=== PATIENT | female | born 1995 | race American Indian/Alaskan Native ===

== ENCOUNTER 2016-10-10 11:06 | Emergency (ER) | payer MEDICAID ==
[2016-10-10] MEDS: ZOFRAN ODT PO ONE ×2 (13:37→14:07)
[2016-10-10] MEDS: TYLENOL PO ONE ×2 (13:37→14:06)
[2016-10-10 13:59] LABS: Basophils % (Auto) 0.3 % (0.0-1.8); Eosinophils % (Auto) 0.3 % (0.0-4.3); Hematocrit 33.3 % (30.3-42.9); Hemoglobin 11.3 gm/dl (10.1-14.3); Mean Corpuscular HGB Conc 34 % (30-34); Mean Corpuscular Hemoglobin 26 pg (28-32); Mean Corpuscular Volume 77 fl (79-97); Platelet Count 208 K/mm3 (140-440); Red Blood Count 4.31 M/mm3 (3.65-5.03); Red Cell Distribution Width 13.6 % (13.2-15.2); White Blood Count 7.2 K/mm3 (4.5-11.0)
[2016-10-10 14:20] LABS: Anion Gap 15 mmol/L; Blood Urea Nitrogen 5 mg/dL (7-17); Calcium 8.6 mg/dL (8.4-10.2); Carbon Dioxide 25 mmol/L (22-30); Chloride 101.5 mmol/L (98-107); Glucose 77 mg/dL (65-100); Potassium 4.1 mmol/L (3.6-5.0); Sodium 137 mmol/L (137-145)
--- NOTE | 2016-10-10 14:24 | Emergency Department Report ---
ED Headache HPI - General Chief Complaint: Headache Stated Complaint: HEADACHE X 1 DAY/EMESIS BLOOD/37 WKS PREG Time Seen by Provider: 10/10/16 13:11 Source: patient Exam Limitations: no limitations - History of Present Illness Initial Comments: 20-year-old female currently 37 weeks in 3 days presents to the hospital multiple complaints. Complaint 1: Headache Patient complains of bitemporal headache that has been constant for the past 2 days. Patient denies any aggravating or alleviating factors. Take over-the- counter Tylenol without improvement. Pt denies blurred vision, focal weakness, or focal numbness. Complained 2: Vomiting blood Issues states she has had intermittent nausea and vomiting throughout her slightly increased last to 3 weeks. Yesterday she vomited up all her food and then subsequently vomited up blood streaked sputum. No further vomiting episodes noted. Patient denies fever, diarrhea, melena, hematochezia, or abdominal pain Complaint 3: Decreased movement Patient states she thinks the baby is moving less than usual. No complaints of vaginal discharge or abdominal pain/cramps. 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 Allergies/Adverse Reactions: Allergies No Known Allergies Allergy (Unverified 03/10/16 00:07) Home Medications: Ambulatory Orders No Known Home Medications [No Reported Home Medications] 03/10/16 ED Review of Systems ROS: Stated complaint: HEADACHE X 1 DAY/EMESIS BLOOD/37 WKS PREG Other details as noted in HPI Comment: All other systems reviewed and negative Other: Constitutional: No fevers chills Eyes: No eye pain visual changes ENT: No ear pain or throat pain Neck: Denies pain Respiratory: Denies cough wheezing shortness of breath Cardiovascular: Denies chest pain, palpitations, syncope GI: Denies abdominal pain : Denies dysuria Musculoskeletal: Denies back pain Skin: Denies rash, lesions, erythema Neurologic: as per hpi Psychiatric: Denies suicidal ideation, hallucinations ED Past Medical Hx - Past Medical History Previous Medical History?: No - Surgical History Past Surgical History?: Yes Additional Surgical History: . D&C, - Social History Smoking Status: Never Smoker Substance Use Type: None - Medications Home Medications: Home Medications Medication Instructions Recorded Confirmed Last Taken Type No Known Home Medications [No 03/10/16 03/10/16 Unknown History Reported Home Medications] ED Physical Exam - General Limitations: No Limitations - Other Other exam information: General: No limitations, patient is alert in no acute distress Head exam: Atraumatic, normocephalic Eyes exam: Normal appearance, nonicteric sclera ENT: Moist mucous membrane, normal oropharynx, no sinus tenderness Neck exam: Normal inspection, full range of motion, no meningismus nontender Respiratory exam: Clear to auscultation bilateral, no wheezes, rales, crackles Cardiovascular: Normal rate and rhythm, normal heart sounds Abdomen: Soft, nondistended, and nontender, with normal bowel sounds, no rebound, or guarding. abdomen. Positive heart tones (see nurse' s note) Extremity: Full range of motion normal inspection no deformity Back: Normal Inspection, full range of motion, no tenderness Neurologic: Alert, oriented x3, cranial nerves intact, no motor or sensory deficit Psychiatric: normal affect, normal mood ED Course Vital Signs 10/10/16 10/10/16 11:15 13:12 Temperature 98.2 F Pulse Rate 87 Respiratory 16 16 Rate Blood Pressure 112/77 O2 Sat by Pulse 100 Oximetry - Reevaluation(s) Reevaluation #1: 10/10/16 14:32 Patient is tolerating by mouth intake in the ED. She refused offer for Tylenol , Zofran, IV fluids. Patient admitted is well-appearing and does not appear to be in acute distress. She was also refused a lunch back here and states she prefers to chicken wings across the street. - Consultations Consultation #1: 10/10/16 14:20 Case was discussed with electrical test engineer bacon skinner for [facility]. She recommends patient follow-up in the office on Tuesday as schedule ED Medical Decision Making - Lab Data Result diagrams: 10/10/16 13:29 10/10/16 13:29 Lab Results 10/10/16 10/10/16 Range/Units 13:29 13:29 WBC 7.2 (4.5-11.0) K/mm3 RBC 4.31 (3.65-5.03) M/mm3 Hgb 11.3 (10.1-14.3) gm/dl Hct 33.3 (30.3-42.9) % MCV 77 L (79-97) fl MCH 26 L (28-32) pg MCHC 34 (30-34) % RDW 13.6 (13.2-15.2) % Plt Count 208 (140-440) K/mm3 Lymph % (Auto) 21.0 (13.4-35.0) % [place] % (Auto) 13.2 H (0.0-7.3) % Eos % (Auto) 0.3 (0.0-4.3) % Baso % (Auto) 0.3 (0.0-1.8) % Lymph # 1.5 (1.2-5.4) K/mm3 [place] # 1.0 H (0.0-0.8) K/mm3 Eos # 0.0 (0.0-0.4) K/mm3 Baso # 0.0 (0.0-0.1) K/mm3 Seg Neutrophils % 65.2 (40.0-70.0) % Seg Neutrophils # 4.7 (1.8-7.7) K/mm3 Sodium 137 (137-145) mmol/L Potassium 4.1 (3.6-5.0) mmol/L Chloride 101.5 (98-107) mmol/L Carbon Dioxide 25 (22-30) mmol/L Anion Gap 15 mmol/L BUN 5 L (7-17) mg/dL Creatinine 0.4 L (0.7-1.2) mg/dL Estimated GFR > 60 ml/min BUN/Creatinine Ratio 12.50 % Glucose 77 (65-100) mg/dL Calcium 8.6 (8.4-10.2) mg/dL - Medical Decision Making Patient refuses all ER interventions and is not in any acute distress in the ED. CBC BMP unremarkable. Patient will be discharged home to follow-up with [facility]. No signs of preeclampsia since patient has normal vital signs. Neck is supple without signs of meningismus. Headache is mild at this time without associated symptoms. Vomiting blood last related to gastritis/GERD lately sousa tear. No signs of anemia or active bleeding. - Differential Diagnosis preeclampsia, intracranial hemorrhage, sinusitis, headache sinusitis, dehyd Critical Care Time: No Critical care attestation.: If time is entered above; I have spent that time in minutes in the direct care of this critically ill patient, excluding procedure time. ED Disposition Clinical Impression: , Headache, GERD (gastroesophageal reflux disease) Disposition: DISCHARGED TO HOME OR SELFCARE Is pt being admited?: No Does the pt Need Aspirin: No Instructions: (ED), Acute Headache (ED), Gastroesophageal Reflux Disease (ED) Additional Instructions: You may continue Tylenol and Zofran as needed. Return if symptoms worsen. Follow up with your doctor as scheduled Referrals: your, [facility] [Other] - 2-3 Days Time of Disposition: 14:39
[2016-10-10 15:47] VITALS: BP 115/71
== END 2016-10-10 14:50 | disposition home or self-care (01) ==
LOC: ED 11:06
DX: O99.613 Diseases of the digestive system complicating pregnancy, third trimester (principal); K21.9 Gastro-esophageal reflux disease without esophagitis; R51 Headache; Z3A.37 37 weeks gestation of pregnancy
CPT/HCPCS: 36415; 80048; 85025; 99283; Q0162

== ENCOUNTER 2016-10-22 23:03 | Outpatient (CLI) | payer MEDICAID ==
[2016-10-22 23:31] VITALS: BP 123/80
[2016-10-23] MEDS ORDERED: VISTARIL PO ONE (02:06)
== END 2016-10-23 02:31 | disposition home or self-care (01) ==
LOC: TRG 23:03 → LD 23:21 → TRG 10-23 02:31
PROVIDERS: ATTEND Obstetrics & Gynecology
DX: O47.1 False labor at or after 37 completed weeks of gestation (principal); Z3A.39 39 weeks gestation of pregnancy
CPT/HCPCS: 59025; Q0177

== ENCOUNTER 2016-10-23 07:40 | Inpatient (IN) | payer MEDICAID ==
[2016-10-23] MEDS ORDERED: LACTATED RINGERS 1,000 ML ONE (08:31)
[2016-10-23] MEDS ORDERED: SUBLIMAZE IV ONE (09:00)
[2016-10-23] MEDS ORDERED: LACTATED RINGERS 1,000 ML IV SCH ×2 (09:00→10:00)
[2016-10-23] MEDS ORDERED: MINERAL OIL PO PRN (09:05)
[2016-10-23] MEDS ORDERED: ZOFRAN IV PRN ×2 (09:05→10:41)
[2016-10-23] MEDS ORDERED: SUBLIMAZE IV PRN (09:05)
[2016-10-23] MEDS ORDERED: STADOL IV PRN (09:05)
[2016-10-23] MEDS ORDERED: XYLOCAINE 2% INFILTRATI ONE (09:05)
[2016-10-23] MEDS ORDERED: BRETHINE IVP PRN (09:05)
[2016-10-23] MEDS ORDERED: ePHEDrine SULFATE IV PRN (09:05)
[2016-10-23] MEDS ORDERED: BRETHINE SUB-Q PRN (09:05)
--- NOTE | 2016-10-23 09:23 | History and Physical Report ---
History of Present Illness Date of examination: 10/23/16 Date of admission: 10/23/16 08:06 Chief complaint: Painful uterine contractions with advanced dilitation. Prior c/s for breech delivery. Desires . History of present illness: 20yo G [id number] at 39.2. care with [facility] since 7.4 weeks gestation. [place] complicated by prior c/s for breech presentation, desires TOLAC/ with this delivery. Pt had a diagnosis of MRSA on buttock abcess that was treated with Clindamycin in May. HGSIL on colpo on 06/21/17. 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, chlamydia Family/Genetic History: none Social history: denies: smoking, alcohol abuse, prescription drug abuse, IV drug use - Obstetrical History Expected Date of Delivery: 10/28/16 Actual Gestation: 39 Week(s) 2 Day(s) : 3 Para: 1 Hx # Term Pregnancies: 1 Number of Pregnancies: 0 Spontaneous Abortions: 1 Induced : 0 Number of Living Children: 1 Medications and Allergies Allergies Allergy/AdvReac Type Severity Reaction Status Date / Time No Known Allergies Allergy Unverified 03/10/16 00:07 Home Medications Medication Instructions Recorded Confirmed Last Taken Type Bnu732/FA/Omega3/Dha/Fish Oil 1 each PO QDAY 10/23/16 10/23/16 10/22/16 History [ Gummies] 1 Active Meds: Active Medications Lactated Ringer's (Lactated Ringers) 1,000 mls @ 125 mls/hr IV DIRECT KAYLA Last Admin: 10/23/16 08:40 Dose: 125 mls/hr Review of Systems All systems: negative - Vital Signs Vital signs: Vital Signs Temp Resp 94.4 F L 20 10/23/16 08:58 10/23/16 08:58 Temp Pulse Resp BP Pulse Ox 94.4 F L 20 10/23/16 08:58 10/23/16 08:58 - Physical Exam Cardiovascular: Regular rate Lungs: Positive: Normal air movement Vagina: Positive: normal moisture Extremities: Positive: normal Deep Tendon Reflex Grade: Normal +2 - Obstetrical FHR: category 1 FHR comments: 145 with early decels Uterine Contraction Monitor Mode: External Cervical Dilatation: 9 (AROM moderate amount of clear fluid ) Cervical Effacement Percentage: 90 station: 0 Uterine Contraction Frequency (min): q2-3 min Uterine Contraction Pattern: Regular Uterine Tone Measurement Phase: Resting Uterine Contraction Intensity: Strong/Firm Results All other labs normal. Assessment and Plan A: IUP 39.2 weeks active labor TOLAC/ Category 1 FHT GBS negative AROM 0915 moderate amount of clear fluid SVE 9/90/0 P: Admit for TOLAC/- consent signed Continuous monitoring Consulted with Dr. Debra Hicks who agrees with plan of care.
[2016-10-23 09:43] LABS: Hematocrit 36.7 % (30.3-42.9); Hemoglobin 12.5 gm/dl (10.1-14.3); Mean Corpuscular HGB Conc 34 % (30-34); Mean Corpuscular Hemoglobin 26 pg (28-32); Mean Corpuscular Volume 76 fl (79-97); Platelet Count 220 K/mm3 (140-440); Red Blood Count 4.81 M/mm3 (3.65-5.03); Red Cell Distribution Width 13.8 % (13.2-15.2); White Blood Count 14.1 K/mm3 (4.5-11.0)
[2016-10-23] MEDS ORDERED: PITOCin/NS 20 UNIT/1000ML DRIP 20 UNITS/1,000 ML BAG IV SCH (10:00)
--- NOTE | 2016-10-23 10:40 | Procedure Note ---
OB Delivery Note - Delivery Date of Delivery: 10/23/16 Surgeon: MARSHALL ANGULO Estimated blood loss: other (250cc) - Vaginal Delivery position: OA Intrapartum events: none Delivery induction: none Delivery augmentation: rupture of membranes Delivery monitor: external FHT, external uterine Route of delivery: Delivery placenta: spontaneous Delivery laceration: 1st degree, other (bilateral labial) Delivery repair: chromic Anesthesia: local Delivery comments: Baby akin Arnold was delivered on 10/23/16 at 0943. Infant was placed directly on mom's chest and abdomen. Placenta was delivered selina side presenting at 0945. Cord was clamped and cut by father of baby. Bilateral labial lacerations were repaired with 3.0 vicryl on SH 1 with Debra Hicks MD. Baby weighed 7lb 10oz . Apgars 8/9. Mom and baby doing well. Father of baby doing skin to skin. - Infant A at 1 minute: 8 at 5 minutes: 9 Gender: Female
[2016-10-23] MEDS ORDERED: PHENERGAN PR PRN (10:41)
[2016-10-23] MEDS ORDERED: MILK OF MAGNESIA PO PRN (10:41)
[2016-10-23] MEDS ORDERED: DERMOPLAST TP PRN (10:41)
[2016-10-23] MEDS ORDERED: DULCOLAX PR PRN (10:41)
[2016-10-23] MEDS ORDERED: TUCKS PAD TP PRN (10:41)
[2016-10-23] MEDS ORDERED: LANSINOH TP PRN (10:41)
[2016-10-23] MEDS ORDERED: TYLENOL PO PRN (10:41)
[2016-10-23] MEDS ORDERED: PHENERGAN PO PRN (10:41)
[2016-10-23] MEDS ORDERED: BENADRYL PO PRN (10:41)
[2016-10-23] MEDS ORDERED: SODIUM CHLORIDE FLUSH SYRINGE 10 ML IV NR (11:00)
[2016-10-23 12:11] LABS: Anisocytosis 1+; Basophils % (Manual) 0 % (0.0-1.8); Blastocytes % (Manual) 0 %; Eosinophils % (Manual) 0 % (0.0-4.3); Platelet Estimate Consistent w Auto
[2016-10-23 12:12] LABS: Diff Status Complete
[2016-10-23] MEDS: MOTRIN PO SCH ×2 (13:08→21:48)
[2016-10-23] MEDS: NORCO 5/325 PO PRN (18:27)
[2016-10-23 23:36] LABS: Hematocrit 32.3 % (30.3-42.9)
[2016-10-24] MEDS: NORCO 5/325 PO PRN (08:35)
--- NOTE | 2016-10-24 11:24 | Progress Note ---
Assessment and Plan A: PPD #1 -stable P: Discharge home in am Discharge instructions given Subjective - Subjective Date of service: 10/24/16 Principal diagnosis: Patient reports: appetite normal [place]: doing well Objective - Vital Signs Latest vital signs: Vital Signs Temp Pulse Pulse Resp BP 10/24/16 08:06 98.4 F 79 16 106/58 10/24/16 00:20 98.6 F 77 16 116/69 10/23/16 19:35 98.6 F 78 16 119/73 10/23/16 18:27 20 10/23/16 15:57 98.3 F 84 16 102/60 10/23/16 12:00 98.8 F 72 18 116/60 Intake and Output 10/23/16 10/24/16 10/24/16 22:59 06:59 14:59 Intake Total 360 550 480 Output Total 700 Balance -340 550 480 Intake: Oral 120 300 480 Intake, Free Water 240 250 Output: Urine 700 Void 700 Other: Total, Intake Amount 120 300 480 Total, Output Amount 700 # Voids Void 1 - Exam Breasts: Present: deferred Cardiovascular: Present: Regular rate Lungs: Present: Clear to auscultation Abdomen: Present: soft Uterus: Present: fundal height below umbilicus Extremities: Present: normal Deep Tendon Reflex Grade: Normal +2 - Labs Labs: Abnormal lab results 10/23/16 Range/Units 08:40 Seg Neuts % (Manual) 95.0 H (40.0-70.0) % Lymphocytes % (Manual) 4.0 L (13.4-35.0) % Seg Neutrophils # Man 13.4 H (1.8-7.7) K/mm3 Lymphocytes # (Manual) 0.6 L (1.2-5.4) K/mm3
--- NOTE | 2016-10-24 11:33 | Discharge Summary ---
Providers - Providers Date of Admission: 10/23/16 08:06 Date of discharge: 10/25/16 Attending physician: MARKUS BAUM MD Primary care physician: MARKUS BAUM MD Hospitalization Reason for admission: active labor Delivery: Episiotomy: none Laceration: other (labial lacerations) Other procedures: none complications: none Discharge diagnosis: IUP at term delivered baby: female Condition at discharge: Good Disposition: DISCHARGED TO HOME OR SELFCARE Plan - Provider Discharge Summary Activity: routine, no sex for 6 weeks, no heavy lifting 4 weeks, no strenuous exercise Additional instructions: [] Smoking cessation referral if applicable(refer to patient education folder for contact #) [] Refer to [facility] Booklet Call your doctor immediately for: * Fever > 100.5 * Heavy vaginal bleeding ( >1 pad per hour) * Severe persistent headache * Shortness of breath * Reddened, hot, painful area to leg or breast * Drainage or odor from incision. * Keep incision clean and dry at all times and follow doctor's instructions regarding bathing/showering - Follow up plan Follow up: [facility] [Provider Group] - 6 Weeks
[2016-10-24] MEDS: MOTRIN PO SCH ×2 (13:21→21:10)
[2016-10-25] MEDS: MOTRIN PO SCH ×3 (02:24→11:57)
[2016-10-25 15:58] VITALS: BP 126/76
== END 2016-10-25 15:20 | disposition home or self-care (01) | DRG 775 ==
LOC: TRG 07:40 → LD 08:06 → TRG 08:06 → OB 11:36
PROVIDERS: ADMIT Obstetrics & Gynecology; ATTEND Obstetrics & Gynecology
PROC: 10E0XZZ Delivery of Products of Conception, External Approach (ICD-10-PCS; principal; 2016-10-23)
PROC: 0HQ9XZZ Repair Perineum Skin, External Approach (ICD-10-PCS; 2016-10-23)
PROC: 10907ZC Drainage of Amniotic Fluid, Therapeutic from Products of Conception, Via Natural or Artificial Opening (ICD-10-PCS; 2016-10-23)
DX: O34.211 Maternal care for low transverse scar from previous cesarean delivery (principal); O70.0 First degree perineal laceration during delivery; Z37.0 Single live birth; Z3A.39 39 weeks gestation of pregnancy
CPT/HCPCS: 36415; 59025; 85007; 85014; 85018; 85025; 85027; 86850; 86900; 86901; J2590; J3010; J7120

== ENCOUNTER 2019-02-15 13:33 | Emergency (ER) | payer MEDICAID ==
[2019-02-15 14:07] VITALS: BP 123/81
--- NOTE | 2019-02-15 14:07 | Emergency Department Report ---
Blank Doc - Documentation Documentation: This is a 23-year-old female that presents with acute headache, nausea, and some blurry vision. Denies worst headache or tunderclap headache. Denies any injuries or trauma. This initial assessment/diagnostic orders/clinical plan/treatment(s) is/are subject to change based on patient's health status, clinical progression and re- assessment by fellow clinical providers in the ED. Further treatment and workup at subsequent clinical providers discretion. Patient/guardians urged not to elope from the ED as their condition may be serious if not clinically assessed and managed. Initial orders include: 1- Patient sent to [facility] for further evaluation and treatment 2- UA 3- CT head
[2019-02-15 14:57] LABS: Bilirubin,Urine NEG (Negative); Blood,Urine NEG (Negative); Color,Urine Yellow (Yellow); Mucus,Urine 2+ /HPF; Protein,Urine <15 mg/dL mg/dL (Negative); Urobilinogen,Urine < 2.0 mg/dL (<2.0)
[2019-02-15 15:03] LABS: HCG Qualitative,Urine Negative (Negative)
--- NOTE | 2019-02-15 16:11 | Cat Scan Report ---
CT BRAIN: 02/15/2019 INDICATION / CLINICAL INFORMATION: Headache. COMPARISON: None available. FINDINGS: BRAIN/INTRACRANIAL STRUCTURES: Unenhanced CT images of the brain demonstrate no evidence of acute int racranial abnormality. Ventricles and sulci are normal in size and shape. There is no evidence of hemorrhage or mass. There are no abnormal extra-axial fluid collections. EXTRACRANIAL STRUCTURES: Unremarkable. IMPRESSION: Negative unenhanced CT of the brain. All CT scans at this location are performed using dose reduction to ALARA by means of automated expos ure control. Signer Name: Dyllan Gneao MD Signed: 02/15/2019 4:07 PM Workstation Name: [id number]
[2019-02-15] MEDS ORDERED: FIORICET PO ONE (18:54)
[2019-02-15] MEDS ORDERED: REGLAN PO ONE (18:54)
[2019-02-15] MEDS ORDERED: BANOPHEN PO ONE (18:54)
[2019-02-15] MEDS ORDERED: BENADRYL PO ONE ×2 (20:05→20:12)
--- NOTE | 2019-02-16 05:36 | Emergency Department Report ---
ED Headache HPI - General Chief Complaint: Headache Stated Complaint: HEADACHE/NAUSEA Time Seen by Provider: 02/15/19 14:05 - History of Present Illness Initial Comments: Patient is a 23-year-old female presents to the emergency room with complaints of right temporal headache that began yesterday. she has associated nausea and vomiting. States occasionally she has some blurry vision with the pain but has no vision issues currently. she denies any numbness or weakness. pt does not report any neck stiffness or fever. She states she has taken Tylenol with some relief. The patient states she has a history of migraines and gets them every month around the time she would have her menstrual cycle. She is on Depo- Provera. 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 Allergies/Adverse Reactions: Allergies No Known Allergies Allergy (Unverified 03/10/16 00:07) Home Medications: Ambulatory Orders Pnv No.103/Folic/Om3s/Fish Oil [ Gummies] 1 each PO QDAY 10/23/16 ED Review of Systems ROS: Stated complaint: HEADACHE/NAUSEA Other details as noted in HPI Comment: All other systems reviewed and negative ED Past Medical Hx - Past Medical History Previous Medical History?: Yes Hx Hypertension: No Hx Congestive Heart Failure: No Hx Diabetes: No Hx Deep Vein Thrombosis: No Hx Renal Disease: No Hx Sickle Cell Disease: No Hx Seizures: No Hx Asthma: No Hx COPD: No Hx HIV: No - Surgical History Past Surgical History?: Yes Additional Surgical History: . D&C, - Social History Smoking Status: Never Smoker Substance Use Type: Marijuana - Medications Home Medications: Home Medications Medication Instructions Recorded Confirmed Last Taken Type Pnv No.103/Folic/Om3s/Fish Oil 1 each PO QDAY 10/23/16 10/23/16 10/22/16 History [ Gummies] 1 ED Physical Exam - General Limitations: No Limitations General appearance: alert, in no apparent distress - Head Head exam: Present: atraumatic, normocephalic - Eye Eye exam: Present: normal appearance, PERRL, EOMI. Absent: nystagmus, periorbital swelling, periorbital tenderness - ENT ENT exam: Present: mucous membranes moist - Respiratory Respiratory exam: Present: normal lung sounds bilaterally. Absent: respiratory distress, wheezes, rales, rhonchi, stridor, accessory muscle use, decreased breath sounds, prolonged expiratory - Cardiovascular Cardiovascular Exam: Present: regular rate, normal rhythm, normal heart sounds. Absent: systolic murmur, diastolic murmur, rubs, gallop - Neurological Exam Neurological exam: Present: alert, oriented X3, CN II-XII intact, normal gait. Absent: motor sensory deficit - Psychiatric Psychiatric exam: Present: normal affect, normal mood - Skin Skin exam: Present: warm, dry, intact ED Course Vital Signs 02/15/19 14:05 Temperature 97.8 F Pulse Rate 81 Respiratory 18 Rate Blood Pressure 123/81 O2 Sat by Pulse 99 Oximetry ED Medical Decision Making - Medical Decision Making Patient is a 23-year-old female presents to the emergency room with complaints of right temporal headache that began yesterday. she has associated nausea and vomiting. States occasionally she has some blurry vision with the pain but has no vision issues currently. she denies any numbness or weakness. pt does not report any neck stiffness or fever. She states she has taken Tylenol with some relief. The patient states she has a history of migraines and gets them every month around the time she would have her menstrual cycle. She is on Depo- Provera. 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 vitals are normal. no abnormalities on physical exam. discussed with pt would give her medications to treat her migraine and would see how she is doing after the medication. was advised by nurse that pt eloped prior to receiving medication Critical care attestation.: If time is entered above; I have spent that time in minutes in the direct care of this critically ill patient, excluding procedure time. ED Disposition Clinical Impression: Headache Qualifiers: Headache type: unspecified Headache chronicity pattern: acute headache Intractability: not intractable Qualified Code(s): R51 - Headache Disposition: Z ELOPED Is pt being admited?: No Does the pt Need Aspirin: No Condition: Stable Instructions: Acute Headache (ED) Referrals: ERNA PEDERSEN MD [Primary Care Provider] - 2-3 Days
== END 2019-02-15 20:13 | disposition left against medical advice (07) ==
LOC: ED 13:33
DX: R51 Headache (principal); R11.2 Nausea with vomiting, unspecified; H53.8 Other visual disturbances; F12.10 Cannabis abuse, uncomplicated
CPT/HCPCS: 70450; 81001; 81025; 99283; Q0163